=== PATIENT | female | born 1960 | race Caucasian/White ===

== ENCOUNTER 2018-12-16 07:47 | Emergency (ER) | payer OTHER ==
[2018-12-16 07:55] VITALS: BMI 30.9
[2018-12-16 07:57] VITALS: RESP 18
--- NOTE | 2018-12-16 08:19 | C.PDOC ---
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 c/o pain toright sims that travels up leg to back and sts hard to walk, took tylenol with no relief. no numbness or tingling. Time Seen by Provider: 12/16/18 08:03 Chief Complaint (Nursing): Lower Extremity Problem/Injury History Per: Patient History/Exam Limitations: no limitations Onset/Duration Of Symptoms: Days Current Symptoms Are (Timing): Still Present Severity: Moderate Past Medical History Reviewed: Historical Data, Nursing Documentation, Vital Signs Vital Signs: Last Vital Signs Temp 98 F 12/16/18 07:51 Pulse 97 H 12/16/18 07:51 Resp 18 12/16/18 07:51 BP 129/79 12/16/18 07:51 Pulse Ox 97 12/16/18 07:51 - Medical History PMH: Anxiety, Depression, Gastritis, HTN, Hypercholesterolemia, Osteoporosis Denies: Chronic Kidney Disease Surgical History: Endoscopy - [facility] Procedures BREAST DX PROCEDURE NEC (10/24/02) COLONOSCOPY (05/13/14) ESOPHAGOGASTRODUODENOSCOPY [EGD] W/CLOSED BIOPSY (10/28/14) INJECT/INFUSE NEC (09/29/14) LOCAL EXCIS BREAST LES (10/24/02) PHYSICAL THERAPY NEC (06/15/15) Family History: States: No Known Family Hx - Social History Hx Tobacco Use: Yes Hx Alcohol Use: No Hx Substance Use: No - Immunization History Hx Tetanus Toxoid Vaccination: No Hx Influenza Vaccination: No Hx Pneumococcal Vaccination: No Review Of Systems Musculoskeletal: Positive for: Leg Pain (right leg pain) Neurological: Negative for: Weakness, Numbness Physical Exam - Physical Exam Appears: Non-toxic, No Acute Distress Skin: Normal Color, Warm, Dry Head: Atraumatic, Normacephalic Eye(s): bilateral: Normal Inspection Extremity: Normal ROM, Tenderness (tenderness to right knee), No Calf Tenderness, No Swelling Pulses: Right Dorsalis Pedis: Normal Neurological/Psych: Oriented x3, Normal Speech, Normal Cognition, Normal Motor, Normal Sensation ED Course And Treatment O2 Sat by Pulse Oximetry: 97 (RA) Pulse Ox Interpretation: Normal Medical Decision Making Medical Decision Making: pt with markedly decreased pain s/p toradol. able to walk to bathroom easily. d/ c home with juan bandage to knee and nsaids. Disposition Counseled Patient/Family Regarding: Diagnosis, Need For Followup, Rx Given - Disposition Referrals: Demarcus Singh MD [Medical Doctor] - Disposition: HOME/ ROUTINE Disposition Time: 09:16 Condition: IMPROVED Additional Instructions: Juan baNDAGE TO KNEE IN DAYTIME FOR COMFORT Tylenol or MOtrin for pain Follow up with your doctor in 2 days Prescriptions: Ibuprofen [Motrin] 600 mg PO TID #30 tab Instructions: Lower Extremity Muscle Strain (DC) Forms: General Discharge Instructions, [facility] ([place]), Work Excuse - Clinical Impression Clinical Impression: Right leg injury - PA / RESPIRATORY SERVICES MANAGER / Resident Statement MD/DO has reviewed & agrees with the documentation as recorded. - Scribe Statement The provider has reviewed the documentation as recorded by the Danetteibronn Peres Provider Attestation All medical record entries made by the Scribe were at my direction and personally dictated by me. I have reviewed the chart and agree that the record accurately reflects my personal performance of the history, physical exam, medical decision making, and the department course for this patient. I have also personally directed, reviewed, and agree with the discharge instructions and disposition.
[2018-12-16 09:29] VITALS: BP 135/76; PULSE 81; TEMP 98.2
[2018-12-16 09:31] VITALS: O2SAT 97
== END 2018-12-16 09:28 | disposition home or self-care (01) ==
LOC: C.ER 07:47
DX: S89.91XA Unspecified injury of right lower leg, initial encounter (principal); W22.03XA Walked into furniture, initial encounter; I10 Essential (primary) hypertension; E78.00 Pure hypercholesterolemia, unspecified; M81.0 Age-related osteoporosis without current pathological fracture; F32.9 Major depressive disorder, single episode, unspecified; Z72.0 Tobacco use
CPT/HCPCS: 96372; 99284; J1885